=== PATIENT | female | born 1990 | race Caucasian/White ===

== ENCOUNTER 2017-10-25 09:40 | Emergency (ER) | payer OTHER ==
[~2017-10-25] VITALS: Ht 160 cm; Wt 63.6 kg
[2017-10-25 09:52] VITALS: BP 117/68; PULSE 85; RESP 16; TEMP 98.8; O2SAT 100
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
[2017-10-25] MEDS ORDERED: ROBA750T PO (11:31)
[2017-10-25] MEDS ORDERED: IBUP1TAB7 PO (11:31)
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
== END 2017-10-25 11:51 | disposition home or self-care (01) ==
LOC: PHED 09:40
DX: S16.1XXA Strain of muscle, fascia and tendon at neck level, initial encounter (principal); V43.52XA Car driver injured in collision with other type car in traffic accident, initial encounter
CPT/HCPCS: 72125; 99283